=== PATIENT | female | born 1980 | race Caucasian/White ===

== ENCOUNTER 2017-05-09 12:24 | Emergency (ER) | payer MEDICAID, OTHER ==
[~2017-05-09] VITALS: Ht 180.3 cm; Wt 100.9 kg
[~2017-05-09 12:24] MED LIST: B-CO1TAB5 PO; HYDR-2768 PO; HYDR10SO PO; PROM25TA5 PO; VITA-83 PO; WELL150T PO; XANA1TAB6 PO; ZOFR4TAB3 SL; ZOLO50TA PO
[2017-05-09 12:28] VITALS: BP 154/83; PULSE 64; RESP 16; TEMP 98.4; O2SAT 99
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
[2017-05-09] MEDS ORDERED: VITA250C3 CHEW (14:22)
[2017-05-09] MEDS ORDERED: DIAZ10TA PO (14:22)
[2017-05-09] MEDS ORDERED: ZOLO50TA PO (14:22)
[2017-05-09] MEDS ORDERED: HYDR-2374 PO (14:22)
== END 2017-05-09 14:23 | disposition home or self-care (01) ==
LOC: PHED 12:24
DX: S60.222A Contusion of left hand, initial encounter (principal); M54.2 Cervicalgia; V89.2XXA Person injured in unspecified motor-vehicle accident, traffic, initial encounter; F31.9 Bipolar disorder, unspecified; F41.9 Anxiety disorder, unspecified; I10 Essential (primary) hypertension; E78.00 Pure hypercholesterolemia, unspecified; G89.29 Other chronic pain; M54.9 Dorsalgia, unspecified
CPT/HCPCS: 70450; 72125; 73130